=== PATIENT | female | born 1975 | race Caucasian/White ===

== ENCOUNTER 2016-09-26 21:02 | Emergency (ER) | payer MEDICAID ==
--- NOTE | 2016-09-26 21:12 | ED Physician Chart ---
Chief Complaint/HPI - Patient Information Date Seen:: 09/26/16 Time Seen:: 21:02 Chief Complaint:: EtOH intoxication History of Present Illness:: 41-year-old female brought in by EMS after police were called by santiago Agarwal who saw the patient loitering and public, brought in with acute, moderate, alcohol intoxication. Has associated mechanical fall with abrasions on the tip of the nose. Patient is wheelchair-bound due to spina bifida. She is alert and oriented and cooperative. Historian:: Patient, EMS Review:: Nurse's Note Reviewed, EMS run form Reviewed Review of Systems - Review of Systems Other: Complete system review otherwise unremarkable except as noted in history of present illness. Past Medical History - Past Medical History Obtainable: No Past Medical History: Other (spina bifida) Family History: None Social History: Non Smoker, Alcohol, No Drug Use, Other Surgical History: None Psychiatricy History: None Medication: None Family Medical History - Family Member Mother History Unknown: Yes Ethnicity: Maternal History Unknown: Yes Physical Exam - Physical Examination Other:: INITIAL VITAL SIGNS: Reviewed by me GENERAL: Alert and interactive. No acute distress. HEAD: Head is normocephalic and atraumatic EYES: EOMI. PERRL. No scleral icterus. No conjunctival injection ENT: Moist mucous membranes. NECK: Supple. No masses. Full range of motion RESPIRATORY: No tachypnea. Clear breath sounds bilaterally. No wheezing, rales, or rhonchi CV: Regular rate and rhythm. No murmurs, rubs, or gallops ABDOMEN: Soft, non-distended, non-tender. No guarding. No rebound. No masses. EXTREMITIES: No deformity. No cyanosis. No edema. SKIN: Warm and dry. No obvious rashes. NEUROLOGIC: Alert and oriented. Face is symmetric. Speech is normal. Gross motor and sensory distally intact. Left lower extremity weakness. ED Septic Shock - . Is Septic Shock (SBP<90, OR Lactate>4 mmol\L) present?: No Reassessment (Disposition) - Reassessment Reassessment:: Patient brought in as she was loitering in public. The influence of alcohol. Rehydrated her. She was alert and oriented 4. She was quite cooperative. She is wheelchair-bound due to spina bifida. She had some minor abrasions that were cleaned thoroughly and dressed. Sister was called. Patient was discharged home with sister. Follow-up primary care within 2 days. Return to ER precautions given. Patient says she understands and agrees with plan. Reassessment Condition:: Improved - Diagnosis Diagnosis:: EtOH intoxication - Aftercare/Follow up Instructions Aftercare/Follow-Up Instructions:: Counseled pt regarding lab results/diagnosis & need follow up, Refer to Discharge Instructions - Patient Disposition Discharge/Transfer:: Home Time:: 23:39 Condition at Disposition:: Improved ED Discharge Plan - Patient Disposition Admit/Discharge/Transfer: PT DISCHARGED HOME Condition at Disposition: Improved Instructions: Alcohol Intoxication, [id number]
[2016-09-26] MEDS ORDERED: Sodium Chloride 0.9% 1,000 ML IV ONE (21:13)
== END 2016-09-26 23:45 | disposition home or self-care (01) ==
LOC: ER 21:02
DX: F10.129 Alcohol abuse with intoxication, unspecified (principal)
CPT/HCPCS: J7030; Z7502